=== PATIENT | male | born 1990 | race Caucasian/White ===

== ENCOUNTER 2017-08-31 13:39 | Emergency (ER) | payer OTHER ==
[~2017-08-31] VITALS: Ht 177.8 cm; Wt 96.0 kg
[~2017-08-31 13:39] MED LIST: HYDR-3240 PO; INSU100C SQ-INSULIN; INSU100V8 SQ; ONDA4TAB7 PO
[2017-08-31] MEDS ORDERED: SODIUM CHLORIDE FLUSH 10ML SYR IVF ONE (14:00)
[2017-08-31] MEDS ORDERED: ONDANSETRON 2MG/ML, 2ML IVPush ONE (14:00)
[2017-08-31] MEDS ORDERED: MORPHINE SULFATE 4 MG/ML, 1ML ONE ×2 (14:05→14:36)
[2017-08-31] MEDS ORDERED: ONDANSETRON 2MG/ML, 2ML ONE (14:06)
[2017-08-31] MEDS: MORPHINE SULFATE 4 MG/ML, 1ML IVPush PRN ×2 (14:07→14:38)
[2017-08-31 14:10] LABS: BASOPHILS # (AUTO) 0.05 x10^3/uL (0-0.1); BASOPHILS % (AUTO) 1 % (0-1); EOSINOPHILS # (AUTO) 0.17 x10^3/uL (0-0.4); EOSINOPHILS % (AUTO) 3 % (1-7); LYMPHOCYTES % (AUTO) 36 % (22-44); MD NO; MEAN CORPUSCULAR HEMOGLOBIN 28.5 pg (27.5-34.5); MEAN CORPUSCULAR HGB CONC 33.8 g/dL (33.2-36.2); MEAN CORPUSCULAR VOLUME 84.3 fL (81-97); MEAN PLATELET VOLUME 7.6 fL (7.4-10.4); MONOCYTES # (AUTO) 0.43 x10^3/uL (0.2-0.8); MONOCYTES % (AUTO) 7 % (2-9); NEUTROPHILS % (AUTO) 53 % (42-75); PLATELET COUNT 408 x10^3/uL (130-400); RED BLOOD COUNT 5.33 x10^6/uL (4.38-5.82); RED CELL DISTRIBUTION WIDTH 12.6 % (9.4-14.8)
[2017-08-31] MEDS ORDERED: INSU100V8 SQ (14:15)
[2017-08-31 14:21] LABS: ALBUMIN 3.2 g/dL (3.4-5.0); ANION GAP 7 mmol/L (5-15); CALCIUM 8.9 mg/dL (8.5-10.1); CHLORIDE 104 mmol/L (98-107)
[2017-08-31 15:04] LABS: MICROSCOPIC INDICATED
[2017-08-31 15:43] LABS: CULTURE INDICATED? NO
[2017-08-31] MEDS ORDERED: KETOROLAC 30 MG/1 ML IVPush ONE (16:30)
[2017-08-31 16:33] VITALS: BP 160/95
== END 2017-08-31 16:41 | disposition home or self-care (01) ==
LOC: ED 15:21
DX: N23 Unspecified renal colic (principal); I10 Essential (primary) hypertension; E11.9 Type 2 diabetes mellitus without complications
CPT/HCPCS: 36415; 74176; 80048; 81001; 82040; 85025; 96374; 96375; 96376; 99285; J1885; J2405

== ENCOUNTER 2017-11-20 11:43 | Emergency (ER) | payer OTHER ==
[~2017-11-20] VITALS: Ht 152.4 cm; Wt 98.5 kg
[2017-11-20 12:33] LABS: BASOPHILS # (AUTO) 0.03 x10^3/uL (0-0.1); BASOPHILS % (AUTO) 1 % (0-1); EOSINOPHILS # (AUTO) 0.17 x10^3/uL (0-0.4); EOSINOPHILS % (AUTO) 4 % (1-7); LYMPHOCYTES # (AUTO) 1.69 x10^3/uL (1-3.4); LYMPHOCYTES % (AUTO) 35 % (22-44); MD NO; MEAN CORPUSCULAR HEMOGLOBIN 28.5 pg (27.5-34.5); MEAN CORPUSCULAR HGB CONC 34.3 g/dL (33.2-36.2); MEAN PLATELET VOLUME 7.8 fL (7.4-10.4); MONOCYTES # (AUTO) 0.45 x10^3/uL (0.2-0.8); MONOCYTES % (AUTO) 10 % (2-9); NEUTROPHILS # (AUTO) 2.44 x10^3/uL (1.8-6.8); NEUTROPHILS % (AUTO) 51 % (42-75); PLATELET COUNT 371 x10^3/uL (130-400); RED BLOOD COUNT 5.32 x10^6/uL (4.38-5.82); RED CELL DISTRIBUTION WIDTH 13.1 % (9.4-14.8)
[2017-11-20 12:39] LABS: ALBUMIN 3.2 g/dL (3.4-5.0); ANION GAP 7 mmol/L (5-15); CHLORIDE 106 mmol/L (98-107); CREATININE 1.02 mg/dL (0.7-1.3)
[2017-11-20 14:34] VITALS: BP 156/90
== END 2017-11-20 14:36 | disposition home or self-care (01) ==
LOC: ED 14:09
DX: R60.0 Localized edema (principal); I10 Essential (primary) hypertension; E11.9 Type 2 diabetes mellitus without complications
CPT/HCPCS: 36415; 80048; 82040; 85025; 99285

== ENCOUNTER → 2018-06-20 | Outpatient (CLI) | payer OTHER | END | disposition home or self-care (01) | LOC: RAD 10:10 | PROVIDERS: ATTEND Nurse Practitioner Family | DX: R22.2 Localized swelling, mass and lump, trunk (principal) | CPT/HCPCS: 76604 ==

== ENCOUNTER 2018-11-12 17:03 | Emergency (ER) | payer OTHER ==
[~2018-11-12] VITALS: Ht 177.8 cm; Wt 96.1 kg
[2018-11-12 17:08] VITALS: BP 174/81
[2018-11-12] MEDS ORDERED: IBUPROFEN 600 MG TABLET ONE (17:40)
[2018-11-12] MEDS ORDERED: ONDANSETRON ODT 4 MG ONE (17:40)
[2018-11-12] MEDS ORDERED: CARV3.122 PO (17:46)
[2018-11-12] MEDS ORDERED: VALS40TA2 PO (17:46)
[2018-11-12 17:53] LABS: RAPID INFLUENZA A Negative (Negative); RAPID INFLUENZA B Negative (Negative)
[2018-11-12] MEDS ORDERED: IBUPROFEN 600 MG TABLET PO ONE (18:00)
[2018-11-12] MEDS ORDERED: ONDANSETRON ODT 4 MG PO ONE (18:00)
--- NOTE | 2018-11-12 18:00 | NUR ---
PT RESTING WITH EYES CLOSED, NO DISTRESS
== END 2018-11-12 18:58 | disposition home or self-care (01) ==
LOC: ED 18:00
DX: J06.9 Acute upper respiratory infection, unspecified (principal); I10 Essential (primary) hypertension; E11.9 Type 2 diabetes mellitus without complications
CPT/HCPCS: 71045; 87400; 99284; Q0162

== ENCOUNTER 2018-12-01 18:08 | Emergency (ER) | payer OTHER ==
[~2018-12-01] VITALS: Ht 177.8 cm; Wt 97.8 kg
[~2018-12-01 18:08] MED LIST changes: +CARV3.122 PO; +VALS40TA2 PO
[2018-12-01 18:10] VITALS: BP 186/95
[2018-12-01] MEDS ORDERED: VALS80TA3 PO (18:23)
[2018-12-01] MEDS ORDERED: INSU100C SQ-INSULIN (18:23)
[2018-12-01] MEDS ORDERED: CARV12.52 PO (18:23)
--- NOTE | 2018-12-01 18:44 | NUR ---
BEDSIDE REPORT FROM SHERLEY YOST, UA SENT TO LAB
--- NOTE | 2018-12-01 18:45 | NUR ---
report given to April YOST
[2018-12-01 18:47] LABS: ALANINE AMINOTRANSFERASE 33 U/L (12-78); ALBUMIN 2.4 g/dL (3.4-5.0); ANION GAP 4 mmol/L (5-15); CALCIUM 8.2 mg/dL (8.5-10.1); CHLORIDE 109 mmol/L (98-107); CREATININE 1.41 mg/dL (0.7-1.3)
[2018-12-01 18:49] LABS: ALKALINE PHOSPHATASE 95 U/L (45-117); BASOPHILS # (AUTO) 0.03 x10^3/uL (0-0.1); BASOPHILS % (AUTO) 0 % (0-1); BILIRUBIN,TOTAL 0.2 mg/dL (0.2-1.0); EOSINOPHILS # (AUTO) 0.09 x10^3/uL (0-0.4); EOSINOPHILS % (AUTO) 2 % (1-7); LYMPHOCYTES # (AUTO) 2.06 x10^3/uL (1-3.4); LYMPHOCYTES % (AUTO) 35 % (22-44); MD NO; MEAN CORPUSCULAR HEMOGLOBIN 27.9 pg (27.5-34.5); MEAN CORPUSCULAR HGB CONC 34.2 g/dL (33.2-36.2); MEAN CORPUSCULAR VOLUME 81.6 fL (81-97); MEAN PLATELET VOLUME 8.1 fL (7.4-10.4); MONOCYTES % (AUTO) 7 % (2-9); NEUTROPHILS # (AUTO) 3.26 x10^3/uL (1.8-6.8); NEUTROPHILS % (AUTO) 56 % (42-75); PLATELET COUNT 383 x10^3/uL (130-400); RED BLOOD COUNT 4.73 x10^6/uL (4.38-5.82); RED CELL DISTRIBUTION WIDTH 13.4 % (9.4-14.8); TOTAL PROTEIN 5.5 g/dL (6.4-8.2)
[2018-12-01 19:03] LABS: MICROSCOPIC AUTO
[2018-12-01 19:14] LABS: CULTURE INDICATED? NO
== END 2018-12-01 19:57 | disposition home or self-care (01) ==
LOC: ED 19:46
DX: R60.0 Localized edema (principal); E10.65 Type 1 diabetes mellitus with hyperglycemia; I10 Essential (primary) hypertension
CPT/HCPCS: 36415; 80053; 81001; 85025; 93005; 99284

== ENCOUNTER 2019-02-08 14:39 | Inpatient (IN) | payer OTHER ==
[~2019-02-08] VITALS: Ht 179.1 cm; Wt 94.9 kg
[~2019-02-08 14:39] MED LIST changes: +CARV12.52 PO; +VALS80TA3 PO
--- NOTE | 2019-02-08 14:59 | NUR ---
C/O JAW PAIN, CP, SWEATINESS, WEAKNESS WHILE PUSHING A PATIENT APPROX 20 MINS PRECISION FILER HAND. PT A&OX4, RESP EVEN & UNLABORED, SPEECH CLEAR, SKIN PALE/W/D. REPORTS CP HAS EASED -MINIMAL CURRENTLY. TOOK USUAL MEDS TODAY, EXCEDRIN 2 TABS THIS AM FOR ARMENTA. GLUCOSE 216 THIS AM. ATE LUNCH TODAY.
[2019-02-08] MEDS ORDERED: VALS160T27 PO (15:05)
[2019-02-08 15:15] LABS: BASOPHILS # (AUTO) 0.03 x10^3/uL (0-0.1); BASOPHILS % (AUTO) 1 % (0-1); EOSINOPHILS # (AUTO) 0.12 x10^3/uL (0-0.4); EOSINOPHILS % (AUTO) 2 % (1-7); LYMPHOCYTES # (AUTO) 1.96 x10^3/uL (1-3.4); LYMPHOCYTES % (AUTO) 35 % (22-44); MD NO; MEAN CORPUSCULAR HEMOGLOBIN 27.8 pg (27.5-34.5); MEAN CORPUSCULAR HGB CONC 33.6 g/dL (33.2-36.2); MEAN CORPUSCULAR VOLUME 82.9 fL (81-97); MEAN PLATELET VOLUME 7.8 fL (7.4-10.4); MONOCYTES % (AUTO) 7 % (2-9); NEUTROPHILS # (AUTO) 3.06 x10^3/uL (1.8-6.8); NEUTROPHILS % (AUTO) 55 % (42-75); PLATELET COUNT 373 x10^3/uL (130-400); RED BLOOD COUNT 4.97 x10^6/uL (4.38-5.82); RED CELL DISTRIBUTION WIDTH 13.3 % (9.4-14.8)
[2019-02-08] MEDS ORDERED: hydrALAzine 20 MG/ML, 1ML ONE ×2 (15:23→16:40)
[2019-02-08 15:27] LABS: ALANINE AMINOTRANSFERASE 34 U/L (12-78); ALBUMIN 2.6 g/dL (3.4-5.0); ANION GAP 7 mmol/L (5-15); CALCIUM 8.6 mg/dL (8.5-10.1); CHLORIDE 106 mmol/L (98-107); CREATININE 1.52 mg/dL (0.7-1.3)
[2019-02-08] MEDS ORDERED: hydrALAzine 20 MG/ML, 1ML IV ONE ×2 (15:30→16:30)
[2019-02-08 15:31] LABS: ALKALINE PHOSPHATASE 105 U/L (45-117); BILIRUBIN,TOTAL 0.2 mg/dL (0.2-1.0); TOTAL PROTEIN 6.1 g/dL (6.4-8.2); TROPONIN I < 0.015 ng/mL (0.000-0.045)
--- NOTE | 2019-02-08 15:54 | NUR ---
IV ACCESS INITIATED. HYDRAZALINE 5MG IV GIVEN PER EMAR. PT RESTING QUIETLY ON BED, SIDE RAIL UP X1, SPOUSE IN ROOM.
[2019-02-08] MEDS ORDERED: IBUPROFEN 200 MG TABLET PO ONE (16:30)
[2019-02-08] MEDS ORDERED: SODIUM CHLORIDE 0.9% 1,000ML IVBOLUS ONE (16:30)
[2019-02-08] MEDS ORDERED: SODIUM CHLORIDE FLUSH 10ML SYR IVF ONE (16:30)
[2019-02-08] MEDS ORDERED: IBUPROFEN 600 MG TABLET ONE (16:32)
--- NOTE | 2019-02-08 16:47 | NUR ---
MOTRIN AND APRESOLINE GIVEN PER EMAR. NS INFUSING W-O; SITE PATENT. PT RESTING ON BED, URINAL AT BS, SPOUSE IN ROOM.
--- NOTE | 2019-02-08 16:52 | NUR ---
UA WALKED TO LAB
--- NOTE | 2019-02-08 17:03 | NUR ---
REPORT TO PRIYANK MCLAUGHLIN FOR ROOM 516
[2019-02-08 17:11] LABS: MICROSCOPIC AUTO
[2019-02-08 17:13] LABS: CULTURE INDICATED? NO
[2019-02-08 17:18] VITALS: BP 195/102
[2019-02-08] MEDS ORDERED: INSULIN LISPRO 100 UNITS/ML, PEN SQ-INSULIN SCH ×2 (18:30→21:00)
[2019-02-08] MEDS: INSULIN LISPRO 100 UNITS/ML, PEN SQ-INSULIN SCH ×2 (18:49→20:45)
[2019-02-08] MEDS: hydrALAzine 20 MG/ML, 1ML IV PRN (18:49)
[2019-02-08] MEDS ORDERED: hydrALAzine 20 MG/ML, 1ML IVPush PRN (19:00)
[2019-02-08] MEDS ORDERED: TEMAZEPAM 15 MG CAPSULE PO PRN (19:00)
[2019-02-08] MEDS ORDERED: DOCUSATE 100 MG CAPSULE PO PRN (19:00)
[2019-02-08] MEDS ORDERED: LIDODERM 5% PATCH TD PRN (19:30)
[2019-02-08] MEDS: HEPARIN 5,000 UNITS/ML, 1ML SQ SCH (20:39)
[2019-02-08 20:48] VITALS: BP 173/89
[2019-02-08 21:03] LABS: TROPONIN I < 0.015 ng/mL (0.000-0.045)
[2019-02-09 03:00] VITALS: BP 117/79
[2019-02-09 03:49] LABS: BASOPHILS # (AUTO) 0.03 x10^3/uL (0-0.1); BASOPHILS % (AUTO) 0 % (0-1); EOSINOPHILS # (AUTO) 0.15 x10^3/uL (0-0.4); EOSINOPHILS % (AUTO) 2 % (1-7); LYMPHOCYTES # (AUTO) 2.07 x10^3/uL (1-3.4); LYMPHOCYTES % (AUTO) 28 % (22-44); MD NO; MEAN CORPUSCULAR HEMOGLOBIN 27.9 pg (27.5-34.5); MEAN CORPUSCULAR HGB CONC 33.2 g/dL (33.2-36.2); MEAN CORPUSCULAR VOLUME 83.9 fL (81-97); MEAN PLATELET VOLUME 7.8 fL (7.4-10.4); MONOCYTES # (AUTO) 0.48 x10^3/uL (0.2-0.8); MONOCYTES % (AUTO) 7 % (2-9); NEUTROPHILS # (AUTO) 4.62 x10^3/uL (1.8-6.8); NEUTROPHILS % (AUTO) 63 % (42-75); PLATELET COUNT 384 x10^3/uL (130-400); RED BLOOD COUNT 4.84 x10^6/uL (4.38-5.82); RED CELL DISTRIBUTION WIDTH 13.3 % (9.4-14.8)
[2019-02-09 03:51] LABS: ANION GAP 6 mmol/L (5-15); CALCIUM 8.3 mg/dL (8.5-10.1); CHLORIDE 106 mmol/L (98-107)
[2019-02-09 03:55] LABS: TROPONIN I < 0.015 ng/mL (0.000-0.045)
[2019-02-09] MEDS: HEPARIN 5,000 UNITS/ML, 1ML SQ SCH ×3 (04:53→21:15)
[2019-02-09 06:46] VITALS: BP 147/87
[2019-02-09] MEDS ORDERED: CARVEDILOL 12.5 MG TABLET PO SCH (09:00)
[2019-02-09] MEDS: VALSARTAN 320 MG TABLET PO SCH (09:59)
[2019-02-09] MEDS: ACETAMINOPHEN 325 MG TABLET PO PRN ×3 (09:59→21:29)
[2019-02-09] MEDS: INSULIN LISPRO 100 UNITS/ML, PEN SQ-INSULIN SCH ×2 (10:12→17:17)
[2019-02-09 13:00] VITALS: BP 144/84
[2019-02-09] MEDS ORDERED: METOPROLOL TARTRATE 25 MG TABLET PO ONE (17:00)
[2019-02-09 18:22] VITALS: BP 149/88
[2019-02-10] VITALS (10 sets, daily range): BP systolic 146–174; BP diastolic 85–106
[2019-02-10] MEDS: HEPARIN 5,000 UNITS/ML, 1ML SQ SCH ×3 (05:37→21:40)
[2019-02-10] MEDS: METOPROLOL SUCCINATE 25 MG TAB.ER.24H PO SCH (05:37)
[2019-02-10] MEDS: INSULIN LISPRO 100 UNITS/ML, PEN SQ-INSULIN SCH ×4 (07:20→21:40)
[2019-02-10] MEDS: VALSARTAN 320 MG TABLET PO SCH (07:31)
[2019-02-10] MEDS ORDERED: AMLODIPINE 5 MG TABLET PO SCH (09:00)
[2019-02-10] MEDS: ACETAMINOPHEN 325 MG TABLET PO PRN (09:48)
[2019-02-10] MEDS: hydrALAzine 20 MG/ML, 1ML IV PRN ×2 (09:52→16:10)
[2019-02-10] MEDS ORDERED: HYDROCHLOROTHIAZIDE 12.5 MG CAPSULE PO SCH (10:00)
[2019-02-10] MEDS ORDERED: AMLODIPINE 5 MG TABLET PO ONE (10:30)
[2019-02-10] MEDS ORDERED: ASA/APAP/ CAFFEINE TABLET PO PRN (11:30)
[2019-02-10] MEDS: BUTALB/APAP/CAFFEINE 50MG/325MG/40MG PO PRN ×2 (11:40→17:20)
[2019-02-10] MEDS ORDERED: INSULIN LISPRO 100 UNITS/ML, PEN SQ-INSULIN ONE (14:00)
[2019-02-10] MEDS ORDERED: DIPHENHYDRAMINE 50 MG/ML, 1ML IVPush ONE ×2 (18:00→19:30)
[2019-02-10] MEDS ORDERED: PROCHLORPERAZINE 5 MG/ML, 2ML IVPush ONE (18:00)
[2019-02-10] MEDS ORDERED: KETOROLAC 30 MG/1 ML IVPush SCH (18:00)
[2019-02-10] MEDS ORDERED: KETOROLAC 30 MG/1 ML IM ONE (18:30)
[2019-02-10] MEDS ORDERED: KETOROLAC 60 MG/2 ML IM ONE (19:00)
[2019-02-10] MEDS ORDERED: METOCLOPRAMIDE 5 MG/ML, 2ML IVPush ONE (19:30)
[2019-02-11 01:29] VITALS: BP 154/82
[2019-02-11 04:00] VITALS: BP 148/87
[2019-02-11 04:46] LABS: BASOPHILS # (AUTO) 0.03 x10^3/uL (0-0.1); BASOPHILS % (AUTO) 1 % (0-1); EOSINOPHILS # (AUTO) 0.13 x10^3/uL (0-0.4); EOSINOPHILS % (AUTO) 3 % (1-7); LYMPHOCYTES # (AUTO) 1.98 x10^3/uL (1-3.4); LYMPHOCYTES % (AUTO) 37 % (22-44); MD NO; MEAN CORPUSCULAR HEMOGLOBIN 28.6 pg (27.5-34.5); MEAN CORPUSCULAR HGB CONC 33.7 g/dL (33.2-36.2); MEAN CORPUSCULAR VOLUME 84.8 fL (81-97); MEAN PLATELET VOLUME 7.9 fL (7.4-10.4); MONOCYTES # (AUTO) 0.47 x10^3/uL (0.2-0.8); MONOCYTES % (AUTO) 9 % (2-9); NEUTROPHILS # (AUTO) 2.74 x10^3/uL (1.8-6.8); NEUTROPHILS % (AUTO) 51 % (42-75); PLATELET COUNT 342 x10^3/uL (130-400); RED BLOOD COUNT 4.86 x10^6/uL (4.38-5.82); RED CELL DISTRIBUTION WIDTH 13.3 % (9.4-14.8)
[2019-02-11 04:50] LABS: ANION GAP 8 mmol/L (5-15); CALCIUM 8.5 mg/dL (8.5-10.1); CHLORIDE 107 mmol/L (98-107)
[2019-02-11 04:51] LABS: CREATININE 1.46 mg/dL (0.7-1.3)
[2019-02-11 05:50] VITALS: BP 128/84
[2019-02-11] MEDS: HEPARIN 5,000 UNITS/ML, 1ML SQ SCH (05:51)
[2019-02-11] MEDS: METOPROLOL SUCCINATE 25 MG TAB.ER.24H PO SCH (05:51)
[2019-02-11 06:34] VITALS: BP 154/89
[2019-02-11] MEDS ORDERED: AMLO-150 PO (08:39)
[2019-02-11] MEDS ORDERED: HYDR25TA6 PO (08:39)
[2019-02-11] MEDS ORDERED: METO25TA91 PO (08:39)
[2019-02-11 08:49] VITALS: BP 149/90
[2019-02-11] MEDS: VALSARTAN 320 MG TABLET PO SCH (08:51)
[2019-02-11] MEDS ORDERED: AMLODIPINE 5 MG TABLET PO SCH (09:00)
[2019-02-11] MEDS ORDERED: HYDROCHLOROTHIAZIDE 25 MG TABLET PO SCH (09:00)
[2019-02-11] MEDS: INSULIN LISPRO 100 UNITS/ML, PEN SQ-INSULIN SCH (09:31)
== END 2019-02-11 11:00 | disposition home or self-care (01) | DRG 311 ==
LOC: ED 16:08 → EDIP 16:09 → ED 16:24 → 5SO 17:13 → DCLOUNGE 02-11 10:46
PROVIDERS: ADMIT Internal Medicine; ATTEND Internal Medicine
DX: I24.9 Acute ischemic heart disease, unspecified (principal); N17.0 Acute kidney failure with tubular necrosis; D68.59 Other primary thrombophilia; E10.65 Type 1 diabetes mellitus with hyperglycemia; I10 Essential (primary) hypertension; Z83.3 Family history of diabetes mellitus
CPT/HCPCS: 36415; 70450; 71045; 80048; 80053; 81001; 82962; 83036; 83880; 84484; 85025; 93005; 93017; 93306; 93975; 96374; 96376; G0378; J1644; J0360; J1200; J1815; J2765; J7030

== ENCOUNTER 2019-03-16 08:40 | Emergency (ER) | payer OTHER ==
[~2019-03-16] VITALS: Ht 180.3 cm; Wt 97.0 kg
[~2019-03-16 08:40] MED LIST changes: +AMLO-150 PO; +HYDR25TA6 PO; +METO25TA91 PO; +VALS160T27 PO
--- NOTE | 2019-03-16 08:56 | NUR ---
PT C/O PRESSURE AND TIGHTNESS IN BLE. STATES HE HAS BEEN TRAVELING AND IS CONCERNED FOR A BLOOD CLOT. PT HAS RASH BLE, STATES HE TRIED TO "WORK FLUID OUT OF THE LEGS". PT STATES FLUID HAS BEEN IN LEGS FOR ABOUT FOUR DAYS. PT DENIES CP, SOB, DIZZINESS. ERMD IN TO EVAL PT.
[2019-03-16 09:35] LABS: BASOPHILS # (AUTO) 0.04 x10^3/uL (0-0.1); BASOPHILS % (AUTO) 1 % (0-1); EOSINOPHILS # (AUTO) 0.13 x10^3/uL (0-0.4); EOSINOPHILS % (AUTO) 2 % (1-7); LYMPHOCYTES # (AUTO) 1.48 x10^3/uL (1-3.4); LYMPHOCYTES % (AUTO) 27 % (22-44); MD NO; MEAN CORPUSCULAR HEMOGLOBIN 27.6 pg (27.5-34.5); MEAN CORPUSCULAR HGB CONC 33.6 g/dL (33.2-36.2); MEAN CORPUSCULAR VOLUME 82.3 fL (81-97); MEAN PLATELET VOLUME 7.9 fL (7.4-10.4); MONOCYTES % (AUTO) 7 % (2-9); NEUTROPHILS # (AUTO) 3.43 x10^3/uL (1.8-6.8); NEUTROPHILS % (AUTO) 63 % (42-75); PLATELET COUNT 364 x10^3/uL (130-400); RED BLOOD COUNT 4.99 x10^6/uL (4.38-5.82); RED CELL DISTRIBUTION WIDTH 12.6 % (9.4-14.8)
[2019-03-16 09:43] VITALS: BP 163/95
--- NOTE | 2019-03-16 09:50 | NUR ---
VAS US IN AT THIS TIME, NAD NOTED
[2019-03-16 10:01] LABS: ALBUMIN 2.4 g/dL (3.4-5.0); ANION GAP 5 mmol/L (5-15); CALCIUM 8.5 mg/dL (8.5-10.1); CHLORIDE 107 mmol/L (98-107); CREATININE 1.25 mg/dL (0.7-1.3)
[2019-03-16 10:22] LABS: ALANINE AMINOTRANSFERASE 27 U/L (12-78); ALKALINE PHOSPHATASE 99 U/L (45-117); BILIRUBIN,TOTAL 0.2 mg/dL (0.2-1.0); TOTAL PROTEIN 5.9 g/dL (6.4-8.2)
--- NOTE | 2019-03-16 11:02 | NUR ---
Patient/Caregiver given discharge instructions and they have confirmed that they understand the instructions. Patient ambulatory with steady gait.
== END 2019-03-16 11:03 | disposition home or self-care (01) ==
LOC: ED 09:58
DX: I87.2 Venous insufficiency (chronic) (peripheral) (principal); L03.115 Cellulitis of right lower limb; L03.116 Cellulitis of left lower limb; R60.0 Localized edema; I10 Essential (primary) hypertension; E11.9 Type 2 diabetes mellitus without complications; Z88.1 Allergy status to other antibiotic agents; Z88.8 Allergy status to other drugs, medicaments and biological substances; Z79.899 Other long term (current) drug therapy
CPT/HCPCS: 36415; 80053; 85025; 93970; 99284

== ENCOUNTER 2019-03-20 09:41 | Outpatient (CLI) | payer OTHER | END 2019-03-20 23:59 | disposition home or self-care (01) | LOC: RAD 09:41 | PROVIDERS: ATTEND Internal Medicine Cardiovascular Disease | DX: C74.10 Malignant neoplasm of medulla of unspecified adrenal gland (principal); I10 Essential (primary) hypertension | CPT/HCPCS: 74170; Q9967 ==

== ENCOUNTER → 2019-10-19 | Outpatient (CLI) | payer OTHER ==
[2019-10-19 08:58] LABS: ALBUMIN 2.2 g/dL (3.4-5.0); ANION GAP 8 mmol/L (5-15); CALCIUM 8.3 mg/dL (8.5-10.1); CHLORIDE 108 mmol/L (98-107)
[2019-10-19 09:10] LABS: ALANINE AMINOTRANSFERASE 19 U/L (12-78); ALKALINE PHOSPHATASE 93 U/L (45-117); BILIRUBIN,TOTAL 0.3 mg/dL (0.2-1.0); CHOL/HDL RATIO 7.4; CHOLESTEROL, TOTAL 265 mg/dL (140-239); CREATININE 1.58 mg/dL (0.7-1.3); HDL CHOL % 14 % (26-37); HDL CHOLESTEROL (DIRECT) 36 mg/dL (40-60); LDL CHOLESTEROL,CALCULATED 186 mg/dL (54-169); LDL/HDL RATIO 5.2 (0.5-3.0); TRIGLYCERIDES 217 mg/dL (50-200); VLDL CHOLESTEROL 43 mg/dL (0-25)
== END | disposition home or self-care (01) ==
LOC: LAB 08:02
PROVIDERS: ATTEND Internal Medicine Endocrinology, Diabetes & Metabolism
DX: I10 Essential (primary) hypertension (principal); E10.65 Type 1 diabetes mellitus with hyperglycemia
CPT/HCPCS: 36415; 80053; 80061; 82043; 82088; 82533; 82570; 83036; 83835; 84244; 84443

== ENCOUNTER 2020-02-21 18:20 | Emergency (ER) | payer OTHER ==
[~2020-02-21] VITALS: Ht 177.8 cm; Wt 104.7 kg
--- NOTE | 2020-02-21 19:09 | NUR ---
C/O LEFT ARM PAIN AND SWELLING, PT REPORTS HE FELL 1 WEEK AGO AND SCRAPPED OFF LEFT SHOULDER ON ROCK.
--- NOTE | 2020-02-21 19:24 | NUR ---
PT TAKEN TO ULTRASOUND.
[2020-02-21] MEDS ORDERED: MORPHINE SULFATE 4 MG/ML, 1ML IVPush ONE (19:30)
[2020-02-21] MEDS ORDERED: ONDANSETRON 2MG/ML, 2ML IVPush ONE (19:30)
[2020-02-21 19:42] LABS: BASOPHILS # (AUTO) 0.04 x10^3/uL (0-0.1); BASOPHILS % (AUTO) 1 % (0-1); EOSINOPHILS # (AUTO) 0.13 x10^3/uL (0-0.4); EOSINOPHILS % (AUTO) 2 % (1-7); LYMPHOCYTES # (AUTO) 1.68 x10^3/uL (1-3.4); LYMPHOCYTES % (AUTO) 28 % (22-44); MD NO; MEAN CORPUSCULAR HGB CONC 32.8 g/dL (33.2-36.2); MEAN CORPUSCULAR VOLUME 82.3 fL (81-97); MEAN PLATELET VOLUME 7.6 fL (7.4-10.4); MONOCYTES # (AUTO) 0.42 x10^3/uL (0.2-0.8); MONOCYTES % (AUTO) 7 % (2-9); NEUTROPHILS # (AUTO) 3.72 x10^3/uL (1.8-6.8); NEUTROPHILS % (AUTO) 62 % (42-75); PLATELET COUNT 426 x10^3/uL (130-400); RED BLOOD COUNT 3.98 x10^6/uL (4.38-5.82); RED CELL DISTRIBUTION WIDTH 13.9 % (9.4-14.8)
[2020-02-21] MEDS ORDERED: ONDANSETRON 2MG/ML, 2ML ONE (19:52)
[2020-02-21 19:53] LABS: ALANINE AMINOTRANSFERASE 24 U/L (12-78); ALBUMIN 2.2 g/dL (3.4-5.0); ANION GAP 4 mmol/L (5-15); CALCIUM 8.1 mg/dL (8.5-10.1); CHLORIDE 110 mmol/L (98-107); CREATININE 1.99 mg/dL (0.7-1.3)
[2020-02-21] MEDS ORDERED: MORPHINE SULFATE 4 MG/ML, 1ML ONE (19:53)
[2020-02-21 19:55] LABS: ALKALINE PHOSPHATASE 83 U/L (45-117); BILIRUBIN,TOTAL 0.2 mg/dL (0.2-1.0)
[2020-02-21] MEDS ORDERED: NEOSPORIN OINT. PKT 1 PACKET ONE (21:05)
[2020-02-21 21:27] VITALS: BP 150/96
== END 2020-02-21 21:38 | disposition home or self-care (01) ==
LOC: ED 19:45
DX: S40.022A Contusion of left upper arm, initial encounter (principal); L03.114 Cellulitis of left upper limb; I10 Essential (primary) hypertension; E11.21 Type 2 diabetes mellitus with diabetic nephropathy; W01.0XXA Fall on same level from slipping, tripping and stumbling without subsequent striking against object, initial encounter; Y93.73 Activity, racquet and hand sports; Y92.89 Other specified places as the place of occurrence of the external cause; Y99.8 Other external cause status
CPT/HCPCS: 36415; 73060; 80053; 85025; 93971; 96374; 96375; 99285; J2270; J2405

== ENCOUNTER 2020-03-16 10:23 | Emergency (ER) | payer OTHER ==
[~2020-03-16] VITALS: Ht 177.8 cm; Wt 101.8 kg
[2020-03-16 11:10] LABS: BASOPHILS # (AUTO) 0.03 x10^3/uL (0-0.1); BASOPHILS % (AUTO) 1 % (0-1); EOSINOPHILS # (AUTO) 0.12 x10^3/uL (0-0.4); EOSINOPHILS % (AUTO) 2 % (1-7); LYMPHOCYTES # (AUTO) 1.36 x10^3/uL (1-3.4); LYMPHOCYTES % (AUTO) 26 % (22-44); MD NO; MEAN CORPUSCULAR HEMOGLOBIN 27.3 pg (27.5-34.5); MEAN CORPUSCULAR HGB CONC 33.5 g/dL (33.2-36.2); MEAN CORPUSCULAR VOLUME 81.5 fL (81-97); MONOCYTES # (AUTO) 0.37 x10^3/uL (0.2-0.8); MONOCYTES % (AUTO) 7 % (2-9); NEUTROPHILS # (AUTO) 3.33 x10^3/uL (1.8-6.8); NEUTROPHILS % (AUTO) 64 % (42-75); PLATELET COUNT 428 x10^3/uL (130-400); RED BLOOD COUNT 4.29 x10^6/uL (4.38-5.82); RED CELL DISTRIBUTION WIDTH 13.4 % (9.4-14.8)
[2020-03-16 11:19] LABS: ALBUMIN 2.3 g/dL (3.4-5.0); ANION GAP 8 mmol/L (5-15); CALCIUM 8.2 mg/dL (8.5-10.1); CHLORIDE 109 mmol/L (98-107)
[2020-03-16 11:22] LABS: ALANINE AMINOTRANSFERASE 20 U/L (12-78); ALKALINE PHOSPHATASE 91 U/L (45-117); BILIRUBIN,TOTAL 0.3 mg/dL (0.2-1.0); CREATININE 1.97 mg/dL (0.7-1.3); TOTAL PROTEIN 5.6 g/dL (6.4-8.2)
[2020-03-16] MEDS ORDERED: VALSARTAN 160 MG TABLET PO SCH (12:00)
[2020-03-16 12:23] LABS: MICROSCOPIC AUTO
[2020-03-16 14:28] VITALS: BP 182/95
== END 2020-03-16 15:16 | disposition home or self-care (01) ==
LOC: ED 11:01
DX: I10 Essential (primary) hypertension (principal); E10.9 Type 1 diabetes mellitus without complications; R11.2 Nausea with vomiting, unspecified; R94.31 Abnormal electrocardiogram [ECG] [EKG]
CPT/HCPCS: 36415; 80053; 81001; 85025; 87086; 93005; 99284

== ENCOUNTER 2020-08-02 12:56 | Emergency (ER) | payer OTHER ==
[~2020-08-02] VITALS: Ht 177.8 cm; Wt 105.6 kg
[2020-08-02] MEDS ORDERED: ACETAMINOPHEN 500 MG TABLET ONE (14:14)
[2020-08-02] MEDS ORDERED: ACETAMINOPHEN 500 MG TABLET PO ONE (14:30)
[2020-08-02 14:35] LABS: BASOPHILS % (AUTO) 1 % (0-1); EOSINOPHILS % (AUTO) 2 % (1-7); LYMPHOCYTES % (AUTO) 23 % (22-44); MEAN CORPUSCULAR HEMOGLOBIN 27.9 pg (27.5-34.5); MEAN CORPUSCULAR HGB CONC 34.4 g/dL (33.2-36.2); MONOCYTES % (AUTO) 7 % (2-9); NEUTROPHILS % (AUTO) 66 % (42-75); PLATELET COUNT 395 x10^3/uL (130-400); RED BLOOD COUNT 4.06 x10^6/uL (4.38-5.82); RED CELL DISTRIBUTION WIDTH 13.3 % (9.4-14.8)
[2020-08-02 14:46] LABS: ALBUMIN 2.3 g/dL (3.4-5.0); ANION GAP 7 mmol/L (5-15); CALCIUM 8.1 mg/dL (8.5-10.1); CHLORIDE 105 mmol/L (98-107)
[2020-08-02 14:49] LABS: MD NO
[2020-08-02 14:53] LABS: ALANINE AMINOTRANSFERASE 24 U/L (12-78); ALKALINE PHOSPHATASE 100 U/L (45-117); BILIRUBIN,TOTAL 0.2 mg/dL (0.2-1.0); CREATININE 2.73 mg/dL (0.7-1.3); TOTAL PROTEIN 5.8 g/dL (6.4-8.2); TROPONIN I < 0.015 ng/mL (0.000-0.045)
--- NOTE | 2020-08-02 15:10 | NUR ---
PATIENT ASKING FOR FURTHER WORKUP FOR POTENTIAL ADRENAL MASS (HYPERTENSIVE/HYPERGLYCEMIC REFRACTORY TO APPROPRIATE MEDICATION/CONTROL OF DIET/STRESS. PROVIDER MADE AWARE. PROVIDER DEFERRING. PATIENT QUITE UPSET. SSRS REPORT DEVELOPER MADE AWARE
[2020-08-02] MEDS ORDERED: SODIUM CHLORIDE 0.9% 1,000ML IVBOLUS ONE (15:30)
[2020-08-02] MEDS ORDERED: DOXA2TAB9 PO (16:48)
[2020-08-02] MEDS ORDERED: HYDR-3341 PO (16:48)
[2020-08-02 16:55] VITALS: BP 189/98
== END 2020-08-02 16:58 | disposition home or self-care (01) ==
LOC: ED 14:02
DX: I10 Essential (primary) hypertension (principal); N28.9 Disorder of kidney and ureter, unspecified; E10.65 Type 1 diabetes mellitus with hyperglycemia; R19.7 Diarrhea, unspecified; R07.9 Chest pain, unspecified
CPT/HCPCS: 36415; 71045; 80053; 82962; 83880; 84443; 84484; 85025; 93005; 96360; 99285; J7030

== ENCOUNTER → 2020-08-21 | Outpatient (CLI) | payer OTHER ==
[~2020-08-21] MED LIST changes: +DOXA2TAB9 PO; +HYDR-3341 PO
[2020-08-21 07:59] LABS: BASOPHILS % (AUTO) 1 % (0-1); EOSINOPHILS % (AUTO) 3 % (1-7); LYMPHOCYTES % (AUTO) 25 % (22-44); MEAN CORPUSCULAR HEMOGLOBIN 27.9 pg (27.5-34.5); MEAN CORPUSCULAR HGB CONC 34.3 g/dL (33.2-36.2); MEAN PLATELET VOLUME 7.4 fL (7.4-10.4); MONOCYTES % (AUTO) 9 % (2-9); NEUTROPHILS % (AUTO) 62 % (42-75); PLATELET COUNT 438 x10^3/uL (130-400); RED BLOOD COUNT 4.09 x10^6/uL (4.38-5.82); RED CELL DISTRIBUTION WIDTH 13.1 % (9.4-14.8)
[2020-08-21 08:12] LABS: ALANINE AMINOTRANSFERASE 19 U/L (12-78); ALBUMIN 2.3 g/dL (3.4-5.0); ANION GAP 7 mmol/L (5-15); CALCIUM 8.6 mg/dL (8.5-10.1); CHLORIDE 108 mmol/L (98-107); CREATININE 2.62 mg/dL (0.7-1.3)
[2020-08-21 08:21] LABS: ALKALINE PHOSPHATASE 110 U/L (45-117); BILIRUBIN,TOTAL 0.3 mg/dL (0.2-1.0); CHOL/HDL RATIO 8.3; CHOLESTEROL, TOTAL 366 mg/dL (140-239); HDL CHOL % 12 % (26-37); HDL CHOLESTEROL (DIRECT) 44 mg/dL (40-60); LDL CHOLESTEROL,CALCULATED 272 mg/dL (54-169); LDL/HDL RATIO 6.2 (0.5-3.0); TOTAL PROTEIN 5.9 g/dL (6.4-8.2); TRIGLYCERIDES 251 mg/dL (50-200); VLDL CHOLESTEROL 50 mg/dL (0-25)
[2020-08-21 08:27] LABS: MD NO
== END | disposition home or self-care (01) ==
LOC: LAB 07:48
PROVIDERS: ATTEND Internal Medicine Cardiovascular Disease
DX: E10.9 Type 1 diabetes mellitus without complications (principal); E78.5 Hyperlipidemia, unspecified; R00.2 Palpitations; I10 Essential (primary) hypertension; R60.0 Localized edema
CPT/HCPCS: 36415; 80053; 80061; 84436; 84443; 84481; 85025

== ENCOUNTER 2020-08-22 06:48 | Outpatient (CLI) | payer OTHER | END 2020-08-22 23:59 | disposition home or self-care (01) | LOC: CVU 06:48 | PROVIDERS: ATTEND Internal Medicine Cardiovascular Disease | DX: I10 Essential (primary) hypertension (principal); R60.0 Localized edema | CPT/HCPCS: 93306; 93970 ==

== ENCOUNTER 2020-09-12 09:40 | Emergency (ER) | payer OTHER ==
[~2020-09-12] VITALS: Ht 177.8 cm; Wt 102.0 kg
[~2020-09-12 09:40] MED LIST changes: +HYDR-1067 PO; -HYDR-3240 PO
--- NOTE | 2020-09-12 10:11 | NUR ---
PT AMBULATORY TO ROOM 10 W C/O CP AND L ARM PAIN STARTED LAST NIGHT. PT STATES HE FEELS PALPITATIONS WELL. PT STATES HX HTN AND DM1. PT DENIES ANY RECENT CHANGES IN STRESS. PT RESTING ON GURNEY. LUND. MONITORS APPLIED. VS ASSESSED. BP ELEVATED.
[2020-09-12] MEDS ORDERED: ASPIRIN 81 MG TABLET CHEW ONE (10:14)
[2020-09-12] MEDS ORDERED: ASPIRIN 81 MG TABLET CHEW PO ONE (10:30)
[2020-09-12 10:39] LABS: ALBUMIN 2.3 g/dL (3.4-5.0); ANION GAP 5 mmol/L (5-15); CALCIUM 8.5 mg/dL (8.5-10.1); CHLORIDE 113 mmol/L (98-107); CREATININE 2.67 mg/dL (0.7-1.3)
[2020-09-12 10:41] LABS: BASOPHILS % (AUTO) 1 % (0-1); EOSINOPHILS % (AUTO) 2 % (1-7); LYMPHOCYTES % (AUTO) 27 % (22-44); MEAN CORPUSCULAR HEMOGLOBIN 27.9 pg (27.5-34.5); MEAN CORPUSCULAR HGB CONC 34.7 g/dL (33.2-36.2); MEAN PLATELET VOLUME 7.8 fL (7.4-10.4); MONOCYTES % (AUTO) 7 % (2-9); NEUTROPHILS % (AUTO) 63 % (42-75); PLATELET COUNT 398 x10^3/uL (130-400); RED BLOOD COUNT 4.02 x10^6/uL (4.38-5.82); RED CELL DISTRIBUTION WIDTH 13.3 % (9.4-14.8)
[2020-09-12 10:43] LABS: MD NO; TROPONIN I < 0.015 ng/mL (0.000-0.045)
--- NOTE | 2020-09-12 11:05 | NUR ---
ERP DR. GARVEY AT BEDSIDE FOR RE-EVAL.
[2020-09-12 11:38] VITALS: BP 159/91
== END 2020-09-12 11:40 | disposition home or self-care (01) ==
LOC: ED 10:47
DX: J18.0 Bronchopneumonia, unspecified organism (principal); R07.89 Other chest pain; I10 Essential (primary) hypertension; E11.9 Type 2 diabetes mellitus without complications
CPT/HCPCS: 36415; 71045; 80048; 82040; 84484; 85025; 93005; 99285

== ENCOUNTER → 2020-09-19 | Outpatient (CLI) | payer OTHER ==
[~2020-09-19] MED LIST changes: +REGADENOSON 0.4 MG/5 ML SYRINGE ONE
== END | disposition home or self-care (01) ==
LOC: CFH 07:41
PROVIDERS: ATTEND Nurse Practitioner Family
DX: I10 Essential (primary) hypertension (principal)
CPT/HCPCS: 78452; 93017; A9502; J2785

== ENCOUNTER 2020-11-30 17:07 | Inpatient (IN) | payer OTHER ==
[~2020-11-30] VITALS: Ht 180.3 cm; Wt 116.4 kg
[~2020-11-30 17:07] MED LIST changes: -HYDR-1067 PO; +HYDR-2214 PO; -REGADENOSON 0.4 MG/5 ML SYRINGE ONE
--- NOTE | 2020-11-30 17:36 | NUR ---
FIRST CONTACT WITH PT. PT C/O BILATERAL KIDNEY PAIN WITH ARMENTA. PT'S BP HIGH IN ROOM 195/102 AT THIS TIME. PT'S AOX4. RESPS EVEN AND UNLABORED. PT TAKES BP MEDS EVERYDAY. BP/SPO2 MONITORS IN PLACE. CALL LIGHT WITHIN REACH.
--- NOTE | 2020-11-30 17:48 | NUR ---
URINE CUP GIVEN. PT AMB TO BR WITH STEADY GAIT.
[2020-11-30] MEDS ORDERED: HYDROmorphone 2 MG/ML, 1ML IM ONE (18:00)
--- NOTE | 2020-11-30 18:02 | NUR ---
EDMD AT BEDSIDE FOR ASSESSMENT AT THIS TIME.
[2020-11-30] MEDS ORDERED: HYDROmorphone 2 MG/ML, 1ML ONE (18:04)
--- NOTE | 2020-11-30 18:10 | NUR ---
URINE COLLECTED AND UA SENT.
--- NOTE | 2020-11-30 18:10 | NUR ---
PT MEDICATED PER EMAR. PT TOLERATED WELL.
--- NOTE | 2020-11-30 18:41 | NUR ---
report from rei rn, pt care transferred at this time. nad, resting on gurney, appears comfortable, bed in lowest, rails engaged, call light on lap, wctm. waiting for lab results.
--- NOTE | 2020-11-30 18:41 | NUR ---
report given to irina greene.
[2020-11-30 18:45] LABS: MICROSCOPIC AUTO
[2020-11-30 18:51] LABS: BASOPHILS % (AUTO) 1 % (0-1); EOSINOPHILS % (AUTO) 3 % (1-7); LYMPHOCYTES % (AUTO) 30 % (22-44); MEAN CORPUSCULAR HEMOGLOBIN 27.5 pg (27.5-34.5); MEAN CORPUSCULAR HGB CONC 34.5 g/dL (33.2-36.2); MEAN PLATELET VOLUME 7.9 fL (7.4-10.4); MONOCYTES % (AUTO) 7 % (2-9); NEUTROPHILS % (AUTO) 59 % (42-75); PLATELET COUNT 424 x10^3/uL (130-400); RED BLOOD COUNT 3.93 x10^6/uL (4.38-5.82)
[2020-11-30 18:52] LABS: MD NO
[2020-11-30 18:55] LABS: ALBUMIN 1.8 g/dL (3.4-5.0); ANION GAP 9 mmol/L (5-15); CHLORIDE 109 mmol/L (98-107)
[2020-11-30 18:56] LABS: CREATININE 3.56 mg/dL (0.7-1.3)
--- NOTE | 2020-11-30 19:37 | NUR ---
PT RESTING ON GURNEY, NAD, APPEARS COMFORTABLE, NO CHANGE IN CONDITION. PROVIDED BLANKETS FOR COMFORT, ERP AWARE OF BP, CHART UP FOR RECHECK. WCTM.
[2020-11-30] MEDS ORDERED: hydrALAzine 20 MG/ML, 1ML ONE (19:57)
[2020-11-30] MEDS ORDERED: hydrALAzine 20 MG/ML, 1ML IV ONE (20:00)
[2020-11-30] MEDS ORDERED: SODIUM CHLORIDE 0.9% 1,000ML IVBOLUS ONE (20:00)
[2020-11-30] MEDS ORDERED: METO25TA2 PO (20:05)
[2020-11-30] MEDS ORDERED: AMLODIPINE PO (20:05)
--- NOTE | 2020-11-30 20:05 | NUR ---
PT MEDICATED PER MAR FOR BP AND DEHYDRATION. MED REC COMPLETED AND ENTERED. PT UPDATED BY RIGO ADAME ON POC. PT NAD, DENIES ADDITIONAL NEEDS, RESTING ON GURNEY, NO CHANGE IN CONDITION. WCTM.
[2020-11-30] MEDS ORDERED: ACETAMINOPHEN 500 MG TABLET ONE (20:14)
[2020-11-30] MEDS ORDERED: ACETAMINOPHEN 500 MG TABLET PO ONE (20:30)
--- NOTE | 2020-11-30 21:17 | NUR ---
pt nad, resting on gurney, reports pain is increased, provided sandwich for comfort, waiting for nephrology consult, wctm .
[2020-11-30] MEDS ORDERED: HYDROmorphone 1 MG/ML, 1ML INJ ONE (21:25)
[2020-11-30] MEDS ORDERED: HYDROmorphone 1 MG/ML, 1ML INJ IV ONE (21:30)
--- NOTE | 2020-11-30 21:33 | NUR ---
pt medicated per mar for pain, nad, denies additional questions or needs at this time. resting on gurney, bed in lowest, rails engaged, call light on lap, to be admitted, wctm.
--- NOTE | 2020-11-30 22:02 | NUR ---
REPORT CALLED TO [employer] FINISHER XIN AT THIS TIME. THIS RN VERIFIED FLOOR ORDER WAS APPROPRIATE WITH BOTH LEÍAS AND RIGO ADAME. PT BECKY, RESTING ON [facility], CARE TO BE TRANSFERRED UPON ARRIVAL TO THE FLOOR.
[2020-11-30 22:27] VITALS: BP 172/96
[2020-11-30] MEDS ORDERED: ONDANSETRON ODT 4 MG PO PRN (22:30)
[2020-11-30] MEDS ORDERED: BISACODYL 10 MG SUPP PR PRN (22:30)
[2020-11-30] MEDS: INSULIN LISPRO 100 UNITS/ML, PEN SQ-INSULIN SCH (22:30)
[2020-11-30] MEDS ORDERED: POLYETHYLENE GLYCOL 17 GM PACKET PO PRN (22:30)
[2020-11-30] MEDS: ACETAMINOPHEN 325 MG TABLET PO PRN (23:00)
[2020-12-01 00:30] VITALS: BP 154/80
[2020-12-01 05:51] LABS: BASOPHILS % (AUTO) 1 % (0-1); EOSINOPHILS % (AUTO) 3 % (1-7); LYMPHOCYTES % (AUTO) 26 % (22-44); MEAN CORPUSCULAR HEMOGLOBIN 27.9 pg (27.5-34.5); MEAN CORPUSCULAR HGB CONC 34.3 g/dL (33.2-36.2); MEAN PLATELET VOLUME 8.1 fL (7.4-10.4); MONOCYTES % (AUTO) 6 % (2-9); NEUTROPHILS % (AUTO) 64 % (42-75); PLATELET COUNT 384 x10^3/uL (130-400); RED BLOOD COUNT 3.56 x10^6/uL (4.38-5.82); RED CELL DISTRIBUTION WIDTH 14.2 % (9.4-14.8)
[2020-12-01 05:57] LABS: MD NO
[2020-12-01 06:03] LABS: ANION GAP 10 mmol/L (5-15); CHLORIDE 107 mmol/L (98-107)
[2020-12-01 06:05] LABS: CREATININE 3.64 mg/dL (0.7-1.3)
[2020-12-01] MEDS: INSULIN LISPRO 100 UNITS/ML, PEN SQ-INSULIN SCH ×4 (06:26→21:20)
[2020-12-01 07:08] VITALS: BP 185/97
[2020-12-01 07:34] LABS: MICROSCOPIC AUTO
[2020-12-01] MEDS: AMLODIPINE 10 MG TAB PO SCH (08:12)
[2020-12-01] MEDS: DOXAZOSIN 2MG TABLET PO SCH (08:12)
[2020-12-01] MEDS: SENNA/DOCUSATE TABLET PO SCH (08:12)
[2020-12-01] MEDS ORDERED: FUROSEMIDE 40 MG/4 ML IV ONE (09:00)
[2020-12-01] MEDS ORDERED: METOPROLOL SUCCINATE 50 MG TAB.ER.24H PO SCH (09:00)
[2020-12-01] MEDS: INSULIN GLARGINE 100 UNITS/ML, PEN SQ-INSULIN SCH (09:20)
[2020-12-01] MEDS: SPIRONOLACTONE 100 MG TABLET PO SCH (09:21)
[2020-12-01] MEDS: VALSARTAN 320 MG TABLET PO SCH (09:32)
[2020-12-01 10:37] LABS: CREATININE,URINE RANDOM 96.9 mg/dL
[2020-12-01 12:42] VITALS: BP 138/78
[2020-12-01 15:46] VITALS: BP 175/95
[2020-12-01 19:09] VITALS: BP 181/99
[2020-12-01] MEDS: ACETAMINOPHEN 325 MG TABLET PO PRN (19:36)
[2020-12-01 21:16] VITALS: BP 169/94
[2020-12-02 00:33] VITALS: BP 168/99
[2020-12-02 06:00] LABS: BASOPHILS % (AUTO) 1 % (0-1); EOSINOPHILS % (AUTO) 2 % (1-7); LYMPHOCYTES % (AUTO) 40 % (22-44); MEAN CORPUSCULAR HEMOGLOBIN 27.4 pg (27.5-34.5); MEAN CORPUSCULAR HGB CONC 34.1 g/dL (33.2-36.2); MEAN PLATELET VOLUME 7.8 fL (7.4-10.4); MONOCYTES % (AUTO) 6 % (2-9); NEUTROPHILS % (AUTO) 51 % (42-75); PLATELET COUNT 405 x10^3/uL (130-400); RED BLOOD COUNT 3.77 x10^6/uL (4.38-5.82)
[2020-12-02 06:01] LABS: MD NO
[2020-12-02 06:08] LABS: ALANINE AMINOTRANSFERASE 23 U/L (12-78); ALBUMIN 1.7 g/dL (3.4-5.0); ANION GAP 5 mmol/L (5-15); CALCIUM 8.1 mg/dL (8.5-10.1); CHLORIDE 111 mmol/L (98-107); CREATININE 3.69 mg/dL (0.7-1.3)
[2020-12-02 06:10] LABS: ALKALINE PHOSPHATASE 95 U/L (45-117); BILIRUBIN,TOTAL 0.2 mg/dL (0.2-1.0); TOTAL PROTEIN 5.5 g/dL (6.4-8.2)
[2020-12-02 07:41] VITALS: BP 183/98
[2020-12-02] MEDS: SPIRONOLACTONE 100 MG TABLET PO SCH (08:29)
[2020-12-02] MEDS: DOXAZOSIN 2MG TABLET PO SCH (08:29)
[2020-12-02] MEDS: METOPROLOL SUCCINATE 100 MG TAB.ER.24H PO SCH (08:30)
[2020-12-02] MEDS: AMLODIPINE 10 MG TAB PO SCH (08:30)
[2020-12-02] MEDS: VALSARTAN 320 MG TABLET PO SCH (08:30)
[2020-12-02] MEDS: SENNA/DOCUSATE TABLET PO SCH (08:30)
[2020-12-02] MEDS: INSULIN LISPRO 100 UNITS/ML, PEN SQ-INSULIN SCH ×4 (09:45→21:00)
[2020-12-02] MEDS: INSULIN GLARGINE 100 UNITS/ML, PEN SQ-INSULIN SCH (09:45)
[2020-12-02] MEDS ORDERED: POTASSIUM CHLORIDE 20 MEQ TAB.ER.PRT PO ONE (10:30)
[2020-12-02 12:03] VITALS: BP 179/96
[2020-12-02] MEDS: FUROSEMIDE 40 MG TABLET PO SCH (12:17)
[2020-12-02] MEDS ORDERED: cloniDINE 0.1MG PATCH TD SCH (15:30)
[2020-12-02 16:53] VITALS: BP 168/84
[2020-12-02] MEDS: POTASSIUM CHLORIDE 20 MEQ TAB.ER.PRT PO SCH (17:31)
[2020-12-02 19:25] VITALS: BP 189/95
[2020-12-02 21:10] VITALS: BP 167/104
[2020-12-03] VITALS (7 sets, daily range): BP systolic 139–190; BP diastolic 82–99
[2020-12-03 05:09] LABS: BASOPHILS % (AUTO) 1 % (0-1); EOSINOPHILS % (AUTO) 3 % (1-7); LYMPHOCYTES % (AUTO) 42 % (22-44); MEAN CORPUSCULAR HEMOGLOBIN 27.7 pg (27.5-34.5); MEAN CORPUSCULAR HGB CONC 34.2 g/dL (33.2-36.2); MEAN PLATELET VOLUME 7.6 fL (7.4-10.4); MONOCYTES % (AUTO) 8 % (2-9); NEUTROPHILS % (AUTO) 45 % (42-75); PLATELET COUNT 430 x10^3/uL (130-400); RED BLOOD COUNT 3.83 x10^6/uL (4.38-5.82); RED CELL DISTRIBUTION WIDTH 14.3 % (9.4-14.8)
[2020-12-03 05:12] LABS: MD NO
[2020-12-03 05:18] LABS: ALBUMIN 1.9 g/dL (3.4-5.0); ANION GAP 6 mmol/L (5-15); CALCIUM 8.5 mg/dL (8.5-10.1); CHLORIDE 112 mmol/L (98-107)
[2020-12-03 05:23] LABS: ALANINE AMINOTRANSFERASE 22 U/L (12-78); ALKALINE PHOSPHATASE 98 U/L (45-117); BILIRUBIN, DIRECT < 0.1 mg/dL (0.1-0.2); BILIRUBIN,INDIRECT 0.1 mg/dL (0.0-2.0); BILIRUBIN,TOTAL 0.2 mg/dL (0.2-1.0); CREATININE 3.66 mg/dL (0.7-1.3); TOTAL PROTEIN 5.9 g/dL (6.4-8.2)
[2020-12-03] MEDS: INSULIN LISPRO 100 UNITS/ML, PEN SQ-INSULIN SCH ×4 (08:06→20:52)
[2020-12-03] MEDS: INSULIN GLARGINE 100 UNITS/ML, PEN SQ-INSULIN SCH (08:30)
[2020-12-03] MEDS: DOXAZOSIN 2MG TABLET PO SCH (08:31)
[2020-12-03] MEDS: AMLODIPINE 10 MG TAB PO SCH (08:32)
[2020-12-03] MEDS: VALSARTAN 320 MG TABLET PO SCH (08:32)
[2020-12-03] MEDS: POTASSIUM CHLORIDE 20 MEQ TAB.ER.PRT PO SCH ×2 (08:32→16:30)
[2020-12-03] MEDS: FUROSEMIDE 40 MG TABLET PO SCH (08:32)
[2020-12-03] MEDS: METOPROLOL SUCCINATE 100 MG TAB.ER.24H PO SCH (08:33)
[2020-12-03] MEDS: SPIRONOLACTONE 100 MG TABLET PO SCH (08:33)
[2020-12-03] MEDS: SENNA/DOCUSATE TABLET PO SCH (08:36)
[2020-12-03] MEDS: FUROSEMIDE 80 MG TABLET PO SCH (16:30)
[2020-12-03] MEDS: ACETAMINOPHEN 325 MG TABLET PO PRN (21:03)
[2020-12-04] VITALS (7 sets, daily range): BP systolic 120–175; BP diastolic 74–99
[2020-12-04 05:29] LABS: ALBUMIN 1.8 g/dL (3.4-5.0); ANION GAP 7 mmol/L (5-15); CALCIUM 8.2 mg/dL (8.5-10.1); CHLORIDE 106 mmol/L (98-107)
[2020-12-04 05:31] LABS: % IRON SATURATION 22 % (20-55); CREATININE 3.92 mg/dL (0.7-1.3); IRON LEVEL 38 mcg/dL (65-175); TOTAL IRON BINDING CAPACITY 171 mcg/dL (250-450)
[2020-12-04 05:34] LABS: CALCIUM 8.2 mg/dL (8.5-10.1)
[2020-12-04] MEDS: DOXAZOSIN 2MG TABLET PO SCH (08:21)
[2020-12-04] MEDS: FUROSEMIDE 80 MG TABLET PO SCH ×2 (08:21→16:59)
[2020-12-04] MEDS: METOPROLOL SUCCINATE 100 MG TAB.ER.24H PO SCH ×2 (08:22→20:26)
[2020-12-04] MEDS: AMLODIPINE 10 MG TAB PO SCH (08:22)
[2020-12-04] MEDS: ERGOCALCIFEROL 50,000 UNIT CAPSULE PO SCH ×2 (08:22→09:07)
[2020-12-04] MEDS: SPIRONOLACTONE 100 MG TABLET PO SCH (08:22)
[2020-12-04] MEDS: VALSARTAN 320 MG TABLET PO SCH (08:22)
[2020-12-04] MEDS: POTASSIUM CHLORIDE 20 MEQ TAB.ER.PRT PO SCH ×2 (08:22→16:59)
[2020-12-04] MEDS: SENNA/DOCUSATE TABLET PO SCH (08:23)
[2020-12-04] MEDS: INSULIN GLARGINE 100 UNITS/ML, PEN SQ-INSULIN SCH (08:23)
[2020-12-04] MEDS: INSULIN LISPRO 100 UNITS/ML, PEN SQ-INSULIN SCH ×4 (08:23→20:24)
[2020-12-04] MEDS: SEVELAMER CARBONATE 800MG TAB PO SCH (12:26)
[2020-12-05 00:27] VITALS: BP 150/88
[2020-12-05 05:20] LABS: ALBUMIN 1.7 g/dL (3.4-5.0); ANION GAP 8 mmol/L (5-15); CALCIUM 8.3 mg/dL (8.5-10.1); CHLORIDE 108 mmol/L (98-107); CREATININE 4.08 mg/dL (0.7-1.3)
[2020-12-05] MEDS: INSULIN LISPRO 100 UNITS/ML, PEN SQ-INSULIN SCH ×2 (07:00→11:51)
[2020-12-05] MEDS: SEVELAMER CARBONATE 800MG TAB PO SCH (07:52)
[2020-12-05] MEDS: INSULIN GLARGINE 100 UNITS/ML, PEN SQ-INSULIN SCH (07:52)
[2020-12-05 09:02] VITALS: BP 136/85
[2020-12-05] MEDS: POTASSIUM CHLORIDE 20 MEQ TAB.ER.PRT PO SCH (09:42)
[2020-12-05] MEDS: VALSARTAN 320 MG TABLET PO SCH (09:42)
[2020-12-05] MEDS: METOPROLOL SUCCINATE 100 MG TAB.ER.24H PO SCH (09:43)
[2020-12-05] MEDS: FUROSEMIDE 80 MG TABLET PO SCH (09:43)
[2020-12-05] MEDS: SPIRONOLACTONE 100 MG TABLET PO SCH (09:43)
[2020-12-05] MEDS: AMLODIPINE 10 MG TAB PO SCH (09:43)
[2020-12-05] MEDS: DOXAZOSIN 2MG TABLET PO SCH (09:46)
[2020-12-05] MEDS: SENNA/DOCUSATE TABLET PO SCH (09:47)
[2020-12-05] MEDS ORDERED: POTA20TA6 PO (11:52)
[2020-12-05] MEDS ORDERED: VALS160T27 PO (11:52)
[2020-12-05] MEDS ORDERED: AMLO-211 PO (11:52)
[2020-12-05] MEDS ORDERED: SEVE800T8 PO (11:52)
[2020-12-05] MEDS ORDERED: HYDR-3343 PO (11:52)
[2020-12-05] MEDS ORDERED: SPIR100T PO (11:52)
[2020-12-05] MEDS ORDERED: METO-95 PO (11:52)
[2020-12-05] MEDS ORDERED: INSU100I13 SQ-INSULIN (11:52)
[2020-12-05] MEDS ORDERED: ERGO500017 PO (11:52)
[2020-12-05] MEDS ORDERED: FURO80TA3 PO (11:52)
[2020-12-05] MEDS ORDERED: CLON1PAT2 TD (11:52)
[2020-12-05] MEDS ORDERED: ATOR40TA PO (11:58)
[2020-12-06] MEDS ORDERED: VALSARTAN 160 MG TABLET PO SCH (09:00)
[2020-12-07] MEDS ORDERED: FUROSEMIDE 80 MG TABLET PO SCH (09:00)
[2020-12-07] MEDS ORDERED: POTASSIUM CHLORIDE 20 MEQ TAB.ER.PRT PO SCH (09:00)
== END 2020-12-05 12:33 | disposition home or self-care (01) | DRG 699 ==
LOC: ED 18:41 → 4WST 22:11 → DCLOUNGE 12-05 12:22
PROVIDERS: ATTEND Internal Medicine
DX: E10.22 Type 1 diabetes mellitus with diabetic chronic kidney disease (principal); I16.1 Hypertensive emergency; I12.9 Hypertensive chronic kidney disease with stage 1 through stage 4 chronic kidney disease, or unspecified chronic kidney disease; N17.9 Acute kidney failure, unspecified; E10.40 Type 1 diabetes mellitus with diabetic neuropathy, unspecified; D50.9 Iron deficiency anemia, unspecified; E10.319 Type 1 diabetes mellitus with unspecified diabetic retinopathy without macular edema; E10.649 Type 1 diabetes mellitus with hypoglycemia without coma; E10.65 Type 1 diabetes mellitus with hyperglycemia; E55.9 Vitamin D deficiency, unspecified; G89.29 Other chronic pain; E87.6 Hypokalemia; E78.5 Hyperlipidemia, unspecified; E66.9 Obesity, unspecified; Z68.35 Body mass index [BMI] 35.0-35.9, adult; Z88.1 Allergy status to other antibiotic agents; Z88.8 Allergy status to other drugs, medicaments and biological substances; N18.9 Chronic kidney disease, unspecified; Z87.442 Personal history of urinary calculi; Z79.4 Long term (current) use of insulin; Z96.41 Presence of insulin pump (external) (internal); M54.5 Low back pain; D47.3 Essential (hemorrhagic) thrombocythemia
CPT/HCPCS: 36415; 76770; 80048; 80053; 80069; 80076; 81001; 82040; 82088; 82306; 82310; 82530; 82570; 82728; 82962; 83036; 83540; 83550; 83698; 83835; 83883; 83970; 84100; 84155; 84156; 84165; 84166; 84244; 85025; 86160; 86162; 86225; 86592; 87086; 87806; 93975; 96360; 96372; G0378; J1170; J1940; Q0162; G0475; J0360; J1815; J7030

== ENCOUNTER → 2020-12-25 | Outpatient (CLI) | payer OTHER ==
[~2020-12-25] MED LIST changes: +AMLO-211 PO; +AMLODIPINE PO; +ATOR40TA PO; +CLON1PAT2 TD; +ERGO500017 PO; +FURO80TA3 PO; +HYDR-3343 PO; +INSU100I13 SQ-INSULIN; +METO-95 PO; +METO25TA2 PO; +POTA20TA6 PO; +SEVE800T8 PO; +SPIR100T PO
[2020-12-25 08:41] LABS: BASOPHILS % (AUTO) 1 % (0-1); EOSINOPHILS % (AUTO) 3 % (1-7); LYMPHOCYTES % (AUTO) 26 % (22-44); MEAN CORPUSCULAR HEMOGLOBIN 27.5 pg (27.5-34.5); MEAN CORPUSCULAR HGB CONC 33.5 g/dL (33.2-36.2); MEAN PLATELET VOLUME 8.1 fL (7.4-10.4); MONOCYTES % (AUTO) 7 % (2-9); NEUTROPHILS % (AUTO) 63 % (42-75); PLATELET COUNT 394 x10^3/uL (130-400); RED BLOOD COUNT 3.65 x10^6/uL (4.38-5.82); RED CELL DISTRIBUTION WIDTH 14.3 % (9.4-14.8)
[2020-12-25 08:45] LABS: MD NO
[2020-12-25 08:49] LABS: ALANINE AMINOTRANSFERASE 20 U/L (12-78); ALBUMIN 2.5 g/dL (3.4-5.0); ANION GAP 5 mmol/L (5-15); CALCIUM 8.6 mg/dL (8.5-10.1); CHLORIDE 112 mmol/L (98-107)
[2020-12-25 08:52] LABS: % IRON SATURATION 21 % (20-55); ALKALINE PHOSPHATASE 93 U/L (45-117); BILIRUBIN,TOTAL 0.2 mg/dL (0.2-1.0); CREATININE 4.08 mg/dL (0.7-1.3); IRON LEVEL 53 mcg/dL (65-175); TOTAL IRON BINDING CAPACITY 253 mcg/dL (250-450); TOTAL PROTEIN 6.3 g/dL (6.4-8.2)
[2020-12-25 09:06] LABS: CALCIUM 8.6 mg/dL (8.5-10.1)
[2020-12-25 09:15] LABS: CREATININE,URINE RANDOM 68.9 mg/dL
[2020-12-25 09:25] LABS: MICROSCOPIC INDICATED
== END | disposition home or self-care (01) ==
LOC: LAB 08:13
PROVIDERS: ATTEND Internal Medicine Nephrology
DX: N25.81 Secondary hyperparathyroidism of renal origin (principal); D63.1 Anemia in chronic kidney disease; N18.4 Chronic kidney disease, stage 4 (severe); E55.9 Vitamin D deficiency, unspecified; R79.9 Abnormal finding of blood chemistry, unspecified; R80.9 Proteinuria, unspecified
CPT/HCPCS: 36415; 80053; 81001; 82306; 82310; 82570; 82728; 83540; 83550; 83735; 83970; 84100; 84156; 84550; 85025; 87086

== ENCOUNTER 2020-12-26 06:08 | Day surgery (SDC) | payer OTHER ==
[~2020-12-26] VITALS: Ht 180.3 cm; Wt 101.1 kg
[2020-12-26] MEDS ORDERED: SODIUM CHLORIDE 0.9% 1,000 ML IV SCH (07:00)
[2020-12-26 07:25] VITALS: BP 135/77
[2020-12-26 07:37] LABS: INTERNATIONAL NORMALIZED RATIO 0.96 (0.93-1.1); PROTHROMBIN TIME 10.3 Seconds (9.6-11.5)
[2020-12-26] MEDS ORDERED: FENTANYL PF 100 MCG/2ML ONE (08:13)
[2020-12-26] MEDS ORDERED: MIDAZOLAM 1 MG/ML, 5ML ONE (08:13)
[2020-12-26] MEDS ORDERED: FLUMAZENIL 0.1 MG/1 ML, 5ML ONE (08:13)
[2020-12-26] MEDS ORDERED: NALOXONE 1 MG/ML, 2ML ONE (08:13)
== END 2020-12-26 10:17 | disposition home or self-care (01) ==
LOC: OUT 06:08
PROVIDERS: ATTEND Internal Medicine Nephrology
DX: E11.22 Type 2 diabetes mellitus with diabetic chronic kidney disease (principal); I12.9 Hypertensive chronic kidney disease with stage 1 through stage 4 chronic kidney disease, or unspecified chronic kidney disease; N18.4 Chronic kidney disease, stage 4 (severe); D63.1 Anemia in chronic kidney disease; N25.81 Secondary hyperparathyroidism of renal origin; E78.5 Hyperlipidemia, unspecified; Z79.4 Long term (current) use of insulin; Z79.899 Other long term (current) drug therapy; Z88.8 Allergy status to other drugs, medicaments and biological substances
CPT/HCPCS: 50200; 77012; 82962; 85610; 88300; 99156; J2250; J3010; J7030; 99157; J2310

== ENCOUNTER 2021-01-22 14:19 | Emergency (ER) | payer OTHER ==
[~2021-01-22] VITALS: Ht 180.3 cm; Wt 98.7 kg
--- NOTE | 2021-01-22 14:56 | NUR ---
PT AMBULATORY TO ROOM FROM [facility], PT CHANGED INTO GOWN. MONITORS IN PLACE. PT STATES HIS C/O INFECTED FOLLICLE IN GROIN, FOR ABOUT 5 DAYS. PT DRAINED PUS OUT YESTERDAY. PT HAS HX OF SAME 9 YEARS.
--- NOTE | 2021-01-22 15:47 | NUR ---
PA AT BS
[2021-01-22 16:12] VITALS: BP 142/74
== END 2021-01-22 16:14 | disposition home or self-care (01) ==
LOC: ED 14:49
DX: L73.9 Follicular disorder, unspecified (principal); L73.1 Pseudofolliculitis barbae
CPT/HCPCS: 99283

== ENCOUNTER → 2021-02-18 | Outpatient (CLI) | payer OTHER ==
[2021-02-18 11:43] LABS: BASOPHILS % (AUTO) 1 % (0-1); EOSINOPHILS % (AUTO) 2 % (1-7); LYMPHOCYTES % (AUTO) 27 % (22-44); MEAN CORPUSCULAR HEMOGLOBIN 28.5 pg (27.5-34.5); MEAN CORPUSCULAR HGB CONC 34.3 g/dL (33.2-36.2); MEAN PLATELET VOLUME 8.1 fL (7.4-10.4); MONOCYTES % (AUTO) 7 % (2-9); NEUTROPHILS % (AUTO) 62 % (42-75); PLATELET COUNT 360 x10^3/uL (130-400); RED BLOOD COUNT 3.57 x10^6/uL (4.38-5.82)
[2021-02-18 11:52] LABS: ALBUMIN 3.1 g/dL (3.4-5.0); ANION GAP 6 mmol/L (5-15); CALCIUM 8.7 mg/dL (8.5-10.1); CHLORIDE 108 mmol/L (98-107)
[2021-02-18 11:55] LABS: MICROSCOPIC AUTO
[2021-02-18 11:57] LABS: % IRON SATURATION 20 % (20-55); CREATININE 4.57 mg/dL (0.7-1.3); IRON LEVEL 56 mcg/dL (65-175); TOTAL IRON BINDING CAPACITY 283 mcg/dL (250-450)
[2021-02-18 12:05] LABS: CREATININE,URINE RANDOM 75.5 mg/dL
== END | disposition home or self-care (01) ==
LOC: LAB 11:24
PROVIDERS: ATTEND Internal Medicine Nephrology
DX: N18.4 Chronic kidney disease, stage 4 (severe) (principal); D63.1 Anemia in chronic kidney disease; R80.9 Proteinuria, unspecified; E55.9 Vitamin D deficiency, unspecified; R79.9 Abnormal finding of blood chemistry, unspecified; Z79.899 Other long term (current) drug therapy
CPT/HCPCS: 36415; 80069; 81001; 82306; 82570; 82728; 83540; 83550; 84156; 85025

== ENCOUNTER → 2021-05-12 | Outpatient (CLI) | payer OTHER ==
[~2021-05-12] MED LIST changes: +POTA-143 PO; -POTA20TA6 PO
[2021-05-12 11:17] LABS: BASOPHILS % (AUTO) 0 % (0-1); EOSINOPHILS % (AUTO) 3 % (1-7); LYMPHOCYTES % (AUTO) 26 % (22-44); MEAN CORPUSCULAR HEMOGLOBIN 29.1 pg (27.5-34.5); MEAN CORPUSCULAR HGB CONC 34.2 g/dL (33.2-36.2); MEAN PLATELET VOLUME 7.9 fL (7.4-10.4); MONOCYTES % (AUTO) 7 % (2-9); NEUTROPHILS % (AUTO) 63 % (42-75); PLATELET COUNT 426 x10^3/uL (130-400); RED BLOOD COUNT 3.37 x10^6/uL (4.38-5.82); RED CELL DISTRIBUTION WIDTH 13.8 % (9.4-14.8)
[2021-05-12 11:22] LABS: ALBUMIN 2.8 g/dL (3.4-5.0); ANION GAP 4 mmol/L (5-15); CALCIUM 8.1 mg/dL (8.5-10.1); CHLORIDE 113 mmol/L (98-107)
[2021-05-12 11:25] LABS: % IRON SATURATION 19 % (20-55); ALANINE AMINOTRANSFERASE 23 U/L (12-78); ALKALINE PHOSPHATASE 92 U/L (45-117); BILIRUBIN,TOTAL 0.3 mg/dL (0.2-1.0); CREATININE 3.84 mg/dL (0.7-1.3); IRON LEVEL 52 mcg/dL (65-175); TOTAL IRON BINDING CAPACITY 278 mcg/dL (250-450); TOTAL PROTEIN 6.3 g/dL (6.4-8.2)
== END | disposition home or self-care (01) ==
LOC: LAB 10:55
PROVIDERS: ATTEND Internal Medicine Nephrology
DX: R79.9 Abnormal finding of blood chemistry, unspecified (principal); D63.1 Anemia in chronic kidney disease; N18.4 Chronic kidney disease, stage 4 (severe)
CPT/HCPCS: 36415; 80053; 82728; 83540; 83550; 84100; 85025